=== PATIENT | male | born 1985 | race Caucasian/White ===

== ENCOUNTER 2016-06-22 22:47 | Emergency (ER) | payer SELFPAY ==
[~2016-06-22] VITALS: Ht 177.8 cm; Wt 69.9 kg
[2016-06-22] MEDS ORDERED: Tramadol (23:22)
[2016-06-22] MEDS ORDERED: GUAI1TBM14 PO (23:55)
[2016-06-22] MEDS ORDERED: BENZ-13 PO (23:55)
[2016-06-22] MEDS ORDERED: DOXY100C42 PO (23:55)
[2016-06-22] MEDS ORDERED: RX-DOXYCYCLINE 100 MG (VIBRAMYCIN) TAB PPK#2 PO STA (23:56)
--- NOTE | 2016-06-22 23:56 | ED Cough/URI ---
General Chief Complaint: Cough/Cold/Flu Symptoms Stated Complaint: COUGH/CONGESTION/PRODUCTIVE COUGH Nursing Triage Note: Pt amb to ED 9, reports cough and congestion since Tuesday. Pt reports he feels he can not catch breathe after each cough. Pt first stated he went to [employer] to watch games before coming here Source: patient History of Present Illness Time seen by provider: 23:13 Initial Comments C/O NON-PRODUCTIVE COUGH AND CONGESTION AND CLEAR NASAL DRAINAGE SINCE Tuesday CHEST HURTS WITH COUGHING AND DEEP BREATHS HAS HAD SUBJECTIVE FEVER, SWEATS, CHILLS SINCE LAST PM GIRLFRIEND WAS HERE LAST PM WITH SAME PT HAS BEEN AT [employer] ALL DAY WATCHING BASEBALL GAMES PCP: [facility] Allergies and Home Medications Allergies Coded Allergies: aspirin (Verified Allergy, Unknown, 06/22/16) iodine (Verified Allergy, Unknown, 06/22/16) Home Medications Benzonatate 100 Mg Capsule, 1-2 TAB PO TID, #30 Prescribed by: DAVION GARY on 06/22/165 Doxycycline Monohydrate 100 Mg Capsule, 100 MG PO BID, #20 Prescribed by: DAVION GARY on 06/22/16 2355 Guaifenesin/Dextromethorphan 1 Each Tbmp.12hr, 1 EACH PO BID for 10 Days, #20 Prescribed by: DAVION GARY on 06/22/16 2355 [Tramadol] , (Reported) Constitutional: see HPI, chills, diaphoresis, fever EENTM: nose congestion, see HPI, No throat pain Respiratory: see HPI, cough, short of breath (ONLY WITHH COUGHING), No wheezing Cardiovascular: see HPI, chest pain (WITH COUGHING) Gastrointestinal: no symptoms reported Genitourinary: no symptoms reported Musculoskeletal: no symptoms reported Skin: no symptoms reported Psychiatric/Neurological: No Symptoms Reported Hematologic/Lymphatic: No Symptoms Reported Immunological/Allergic: no symptoms reported Past Ioasuhx-Uzdtqa-Xheafs Hx Patient Social History Alcohol Use: Occasionally Uses (LAST USED 06/20/16, PER PT ON 06/22/16) Recreational Drug Use: Yes (THC, + IV METH USE) Smoking Status: Current Everyday Smoker (1 1/2 PPD) Type Used: Cigarettes Recent Foreign Travel: No Contact w/Someone Who Travel: No Recent Infectious Disease Expo: No Recent Hopitalizations: No Seasonal Allergies Seasonal Allergies: No Surgeries HX Surgeries: No Respiratory Hx Respiratory Disorders: No Cardiovascular Hx Cardiac Disorders: No Neurological Hx Neurological Disorders: No Reproductive System Hx Reproductive Disorders: No Genitourinary Hx Genitourinary Disorders: No Gastrointestinal Hx Gastrointestinal Disorders: No Musculoskeletal Hx Musculoskeletal Disorders: Yes (CHRONIC LEFT HIP AND BILATERAL KNEE PAIN ) Endocrine Hx Endocrine Disorders: No HEENT HX ENT Disorders: No Cancer Hx Cancer: No Psychosocial Hx Psychiatric Problems: No Integumentary HX Skin/Integumentary Disorder: No Blood Transfusions Hx Blood Disorders: No Physical Exam Vital Signs Vital Sign - Last 12Hours 06/22/16 22:59 Temp 102.0 Pulse 108 Resp 20 B/P (MAP) 132/75 Pulse Ox 98 O2 Delivery Room Air Capillary Refill : Less Than 3 Seconds General Appearance: WD/WN, no apparent distress, other (DIRTY, VERY MALODOROUS , CONSTANT MOVEMENTS OF ENTIRE BODY AND MOUTH--APPEARS TO BE UNDER THE INFLUENCE OF SOME SUBSTANCE/S, DOES GIRLFRIEND) HEENT: PERRL/EOMI, TMs normal, pharynx normal, other (NASAL CONGESTION, CLEAR RHINORRHEA, NO SINUS TENDERNESS. 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, no motor/sensory deficits, alert, oriented x 3 Skin: normal color, warm/dry Progress/Results/Core Measures Results/Orders Micro Results Microbiology 06/22/16 Influenza Types A,B Antigen (REG) - Final, Complete My Orders Orders - DAVION GARY DO Influenza A And B Antigens (06/22/16 23:16) Chest Pa/Lat (2 View) (06/22/16 23:16) Rx-Doxycycline Tablet (Rx-Vibramycin Tab (06/22/16 23:56) Benzonatate Capsule (Tessalon Perles) (06/23/16 09:00) Benzonatate Capsule (Tessalon Perles) (06/22/16 23:58) Vital Signs/I&O Vital Sign - Last 12Hours 06/22/16 22:59 Temp 102.0 Pulse 108 Resp 20 B/P (MAP) 132/75 Pulse Ox 98 O2 Delivery Room Air Blood Pressure Mean: 94 Progress Note : Progress Note FLU SCREEN NEGATIVE Diagnostic Imaging Comments CXR--NO ACUTE PROCESS, PENDING RADIOLOGIST REVIEW Reviewed: Reviewed by Me Departure Impression Impression: Primary Impression: Upper respiratory infection Additional Impression: Bronchitis Disposition: 01 HOME, SELF-CARE Condition: Stable Departure-Patient Inst. Referrals: [facility] [place], [place] Patient Instructions: Acute Bronchitis, Adult (DC), Bacterial Upper Respiratory Infection, Adult (DC) Add. Discharge Instructions: LOTS OF CLEAR LIQUIDS TYLENOL 1 GRAM /MOTRIN 800 MG 4 TIMES A DAY FOR PAIN OR FEVER FOLLOW UP WITH YOUR DR IN 4-5 DAYS IF NO BETTER All discharge instructions reviewed with patient and/or family. Voiced understanding. Scripts Benzonatate (Tessalon Perle) 100 Mg Capsule 1-2 TAB PO TID for Cough, #30 CAP Prov: DAVION GARY DO 06/22/16 Guaifenesin/Dextromethorphan (Mucinex Dm ER 1,200-60 mg Tab) 1 Each Tbmp.12hr 1 EACH PO BID for 10 Days, #20 EA Prov: DAVION GARY DO 06/22/16 Doxycycline Monohydrate (Doxycycline Monohydrate) 100 Mg Capsule 100 MG PO BID, #20 CAP Prov: DAVION GARY DO 06/22/16 Work/School Note: Work Release Form Date Seen in the Emergency Department: Jun 22, 2016 DAVION GARY DO Jun 22, 2016 23:56
[2016-06-22] MEDS ORDERED: BENZONATATE 100 MG (TESSALON) CAPSULE PO ONE (23:58)
[2016-06-23 00:05] VITALS: BP 128/71
--- NOTE | 2016-06-23 07:42 | Diagnostic Imaging Report ---
INDICATION: Cough and congestion. FINDINGS: Examination of the chest in the PA and lateral projections fails to reveal evidence of active parenchymal pathology or pleural effusion. The cardiac silhouette is normal. IMPRESSION: Negative chest. Dictated by: Dictated on workstation # [id number]
[2016-06-23] MEDS ORDERED: BENZONATATE 100 MG (TESSALON) CAPSULE PO SCH (09:00)
== END 2016-06-23 00:05 | disposition home or self-care (01) ==
LOC: ER 22:52
DX: J06.9 Acute upper respiratory infection, unspecified (principal); J40 Bronchitis, not specified as acute or chronic; K02.9 Dental caries, unspecified; F17.210 Nicotine dependence, cigarettes, uncomplicated
CPT/HCPCS: 71020; 87804; 99283